=== PATIENT | male | born 1945 | race Caucasian/White ===

== ENCOUNTER 2017-02-28 10:38 | Day surgery (SDC) | payer OTHER, BC ==
[~2017-02-28] VITALS: Ht 174 cm; Wt 115.7 kg
[~2017-02-28 10:38] MED LIST: ADVIL200 MG PO; ATENOLOL50 MG PO; ATORVASTATIN CA20 MG PO; DAILY VALUE1 EACH PO; KRILL OIL 3001 EACH PO; LASIX40 MG PO; LO-DOSE ASPIRIN81 M1 PO; MULTIVITAMIN1 EAC2 PO; POTASSIUM CHLO20 ME2 PO; SPIRONOLACTONE50 MG PO; ULTRAM50 MG PO; VALSARTAN160 MG PO; VITAMIN D2000 UNIT PO
== END 2017-02-28 12:00 | disposition home or self-care (01) ==
LOC: PAIN 10:38 → SDC 14:00 → PAIN 14:00
DX: M47.26 Other spondylosis with radiculopathy, lumbar region (principal); M47.22 Other spondylosis with radiculopathy, cervical region; M25.512 Pain in left shoulder; E66.3 Overweight; Z68.38 Body mass index [BMI] 38.0-38.9, adult; I10 Essential (primary) hypertension; G47.33 Obstructive sleep apnea (adult) (pediatric); E78.5 Hyperlipidemia, unspecified; Z79.82 Long term (current) use of aspirin; Z79.891 Long term (current) use of opiate analgesic; Z88.0 Allergy status to penicillin
CPT/HCPCS: J1030; J3010; S0020

== ENCOUNTER 2017-03-07 08:37 | Day surgery (SDC) | payer OTHER, BC ==
[~2017-03-07] VITALS: Ht 174 cm; Wt 115.7 kg
== END 2017-03-07 10:32 | disposition home or self-care (01) ==
LOC: PAIN 08:37 → SDC 09:00 → PAIN 10:32
DX: M47.26 Other spondylosis with radiculopathy, lumbar region (principal); M47.22 Other spondylosis with radiculopathy, cervical region; I35.0 Nonrheumatic aortic (valve) stenosis; I10 Essential (primary) hypertension; E78.5 Hyperlipidemia, unspecified; M79.89 Other specified soft tissue disorders; G47.33 Obstructive sleep apnea (adult) (pediatric); M19.90 Unspecified osteoarthritis, unspecified site; E66.9 Obesity, unspecified; Z68.37 Body mass index [BMI] 37.0-37.9, adult; Z95.2 Presence of prosthetic heart valve; N40.0 Benign prostatic hyperplasia without lower urinary tract symptoms; Z79.82 Long term (current) use of aspirin; Z88.0 Allergy status to penicillin
CPT/HCPCS: J1030; J2250; J3010; S0020

== ENCOUNTER 2017-04-20 11:02 | Day surgery (SDC) | payer OTHER, BC ==
[~2017-04-20] VITALS: Ht 174 cm; Wt 115.6 kg
== END 2017-04-20 12:55 | disposition home or self-care (01) ==
LOC: PAIN 11:02 → SDC 11:30 → PAIN 11:30
DX: M47.26 Other spondylosis with radiculopathy, lumbar region (principal); M54.5 Low back pain; G89.29 Other chronic pain; M47.22 Other spondylosis with radiculopathy, cervical region; I10 Essential (primary) hypertension; I35.0 Nonrheumatic aortic (valve) stenosis; E78.5 Hyperlipidemia, unspecified; E66.9 Obesity, unspecified; Z68.38 Body mass index [BMI] 38.0-38.9, adult; G47.33 Obstructive sleep apnea (adult) (pediatric); R73.03 Prediabetes; Z95.2 Presence of prosthetic heart valve; Z88.0 Allergy status to penicillin; Z79.82 Long term (current) use of aspirin
CPT/HCPCS: J1030; J2250; S0020

== ENCOUNTER 2017-04-24 13:05 | Day surgery (SDC) | payer OTHER, BC ==
[~2017-04-24] VITALS: Ht 174 cm; Wt 115.2 kg
[2017-04-24] MEDS ORDERED: COLACE100 MG PO (13:53)
== END 2017-04-24 15:55 | disposition home or self-care (01) ==
LOC: PAIN 13:05 → SDC 13:30 → PAIN 13:30
PROC: 015B3ZZ Destruction of Lumbar Nerve, Percutaneous Approach (ICD-10-PCS; principal; 2017-04-24)
DX: M47.26 Other spondylosis with radiculopathy, lumbar region (principal); I35.0 Nonrheumatic aortic (valve) stenosis; I11.9 Hypertensive heart disease without heart failure; E78.5 Hyperlipidemia, unspecified; G47.33 Obstructive sleep apnea (adult) (pediatric); N40.0 Benign prostatic hyperplasia without lower urinary tract symptoms; Z79.82 Long term (current) use of aspirin; Z88.0 Allergy status to penicillin
CPT/HCPCS: J1030; J2250; J3010; S0020